=== PATIENT | female | born 1970 | race Two or more races ===

== ENCOUNTER 2019-05-04 01:15 | Emergency (ER) | payer MEDICAID ==
[~2019-05-04] VITALS: Ht 162.6 cm; Wt 49.9 kg
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
[2019-05-04] MEDS ORDERED: ACETAMINOPHEN 325 MG TABLET ONE (02:00)
[2019-05-04] MEDS ORDERED: CYCLOBENZAPRINE 10 MG TABLET ONE (02:00)
[2019-05-04] MEDS ORDERED: IBUPROFEN 400 MG TABLET ONE (02:00)
[2019-05-04] MEDS ORDERED: CYCLOBENZAPRINE 10 MG TABLET PO ONE (02:00)
[2019-05-04] MEDS ORDERED: IBUPROFEN 400 MG TABLET PO ONE (02:00)
[2019-05-04] MEDS ORDERED: ACETAMINOPHEN 325 MG TABLET PO ONE (02:00)
--- NOTE | 2019-05-04 02:21 | NUR ---
Patient is resting comfortably in bed with eyes closed. Easily aroused. VSS
--- NOTE | 2019-05-04 05:23 | NUR ---
Patient given written and verbal discharge instructions. Patient verbalizes understanding of instructions. Patient is ambulatory with steady gait. Refuses offer of halfway placement. Patient given list of available shelters in surrounding area. PT GIVEN FOOD
[2019-05-04 05:24] VITALS: BP 121/84
== END 2019-05-04 05:26 | disposition home or self-care (01) ==
LOC: ER 01:17
DX: G89.29 Other chronic pain (principal); M54.5 Low back pain; V49.69XA Unspecified car occupant injured in collision with other motor vehicles in traffic accident, initial encounter; Y93.89 Activity, other specified; Y92.413 State road as the place of occurrence of the external cause; Y99.8 Other external cause status